=== PATIENT | male | born 1930 | race African-American/Black ===

== ENCOUNTER 2016-12-22 10:43 | Inpatient (IN) | payer MEDICARE, OTHER ==
[~2016-12-22] VITALS: Ht 170.2 cm; Wt 103.9 kg
[~2016-12-22 10:43] MED LIST: AMLO2.5T45 PO; ATEN50TA PO; ATOR-2 PO; BUDE6HFA INH; HYDR-3927 PO; MELO-58 PO; RANI150T7 PO
[2016-12-22] MEDS ORDERED: KETOROLAC 60MG/2ML VIAL IM ONE (11:15)
[2016-12-22 12:14] LABS: BASOPHILS % 0.7 % (0.0-2.0); EOSINOPHILS % 0.3 % (0.0-5.0); HEMATOCRIT. 30.6 % (42.0-52.0); HEMOGLOBIN. 10.6 g/dL (14.0-18.0); LYMPHOCYTES % 12.9 % (20.0-50.0); MEAN CORPUSCULAR HEMOGLOBIN 29.1 pg (28.0-32.0); MEAN CORPUSCULAR VOLUME 84.5 fL (80.0-94.0); MEAN PLATELET VOLUME 8.5 fl (7.4-10.4); MONOCYTES % 5.3 % (2.0-8.0); NEUTROPHILS % 80.8 % (40.0-76.0); PLATELET 161 x1000/uL (130-400); RED BLOOD CELL COUNT 3.62 mill/uL (4.7-6.1); RED CELL DISTRIBUTION WIDTH 14.4 % (11.6-14.6)
[2016-12-22 12:20] LABS: INR 1.1; PROTHROMBIN TIME 11.1 sec
[2016-12-22 12:23] LABS: CARBON DIOXIDE 27 mEq/L (21-32); CHLORIDE 88 mEq/L (98-107)
[2016-12-22 12:29] LABS: TROPONIN I 0.03 ng/mL (0.00-0.04)
[2016-12-22] MEDS ORDERED: SODIUM CHLORIDE 0.9% 1,000 ML IV ONE (13:45)
[2016-12-22 14:07] LABS: *AMPHETAMINES SCREEN URINE NEGATIVE (NEGATIVE); *BARBITURATES SCREEN URINE NEGATIVE (NEGATIVE); *BENZODIAZEPINES SCREEN URINE NEGATIVE (NEGATIVE); *COCAINE SCREEN URINE NEGATIVE (NEGATIVE); CANNABINOID URINE SCREEN PRESUMTIVE POSITIVE (NEGATIVE); METHADONE URINE SCREEN NEGATIVE (NEGATIVE); OPIATES URINE SCREEN NEGATIVE (NEGATIVE); PHENCYCLIDINE URINE SCREEN NEGATIVE (NEGATIVE)
[2016-12-22 16:00] VITALS: BP 160/77
[2016-12-22] MEDS ORDERED: IPRATROPIUM/ALBUTEROL 0.5-3(2.5)MG/3ML NEB INH PRN (17:00)
[2016-12-22] MEDS ORDERED: ONDANSETRON HCL 4MG/2ML VIAL IV PRN (17:00)
[2016-12-22] MEDS ORDERED: GUAIFENESIN 200MG/10ML SUGAR FREE UDC PO PRN (17:00)
[2016-12-22] MEDS ORDERED: LEVOFLOXACIN 500MG PREMIX 100 ML IV SCH (17:00)
[2016-12-22] MEDS ORDERED: CLONIDINE 0.1MG TABLET PO PRN (17:00)
[2016-12-22 17:13] VITALS: BP 160/77
[2016-12-22] MEDS: THIAMINE HCL 100MG TABLET PO SCH (18:21)
[2016-12-22] MEDS: MULTIVITAMINS,THER W-MINERALS TABLET PO SCH (18:22)
[2016-12-22] MEDS: ACETAMINOPHEN 325MG TABLET PO PRN (19:01)
[2016-12-22] MEDS: LORAZEPAM 2MG/ML CPJ IV PRN (20:10)
[2016-12-22 20:39] VITALS: BP 155/75
[2016-12-22] MEDS: LEVOFLOXACIN 500MG PREMIX 100 ML IV SCH (20:46)
[2016-12-22] MEDS: SODIUM CHLORIDE 0.9% 1,000 ML IV SCH (20:47)
[2016-12-22] MEDS: ENOXAPARIN 30MG/0.3ML SYR SUBCUT SCH (20:48)
[2016-12-22] MEDS: HYDROCODONE/ACETAMINOPHEN 10/325MG TABLET PO PRN (21:00)
[2016-12-23 00:52] VITALS: BP 129/66
[2016-12-23] MEDS: HYDROCODONE/ACETAMINOPHEN 10/325MG TABLET PO PRN ×3 (01:00→22:21)
[2016-12-23] MEDS: LORAZEPAM 2MG/ML CPJ IV PRN (03:24)
[2016-12-23 05:01] VITALS: BP 116/70
[2016-12-23 07:46] LABS: CARBON DIOXIDE 29 mEq/L (21-32); CHLORIDE 92 mEq/L (98-107)
[2016-12-23 07:48] LABS: BASOPHILS % 0.4 % (0.0-2.0); EOSINOPHILS % 2.2 % (0.0-5.0); HEMATOCRIT. 30.4 % (42.0-52.0); HEMOGLOBIN. 10.4 g/dL (14.0-18.0); LYMPHOCYTES % 30.6 % (20.0-50.0); MEAN CORPUSCULAR HEMOGLOBIN 29.2 pg (28.0-32.0); MEAN CORPUSCULAR VOLUME 85.3 fL (80.0-94.0); MONOCYTES % 7.2 % (2.0-8.0); NEUTROPHILS % 59.6 % (40.0-76.0); PLATELET 152 x1000/uL (130-400); RED BLOOD CELL COUNT 3.57 mill/uL (4.7-6.1); RED CELL DISTRIBUTION WIDTH 14.5 % (11.6-14.6)
[2016-12-23 08:00] VITALS: BP 144/77
[2016-12-23] MEDS: MULTIVITAMINS,THER W-MINERALS TABLET PO SCH (10:06)
[2016-12-23] MEDS: THIAMINE HCL 100MG TABLET PO SCH (10:06)
[2016-12-23] MEDS: ASPIRIN 81MG EC TABLET PO SCH (10:06)
[2016-12-23] MEDS: ENOXAPARIN 30MG/0.3ML SYR SUBCUT SCH ×2 (10:07→21:00)
[2016-12-23 12:00] VITALS: BP 125/77
[2016-12-23 16:00] VITALS: BP 128/78
[2016-12-23] MEDS: SODIUM CHLORIDE 0.9% 1,000 ML IV SCH (19:40)
[2016-12-23 20:00] VITALS: BP 143/74
[2016-12-23] MEDS: LEVOFLOXACIN 500MG PREMIX 100 ML IV SCH (21:00)
[2016-12-24] VITALS: BP 163/89
[2016-12-24 04:00] VITALS: BP 167/106
[2016-12-24] MEDS: HYDROCODONE/ACETAMINOPHEN 10/325MG TABLET PO PRN ×2 (06:54→23:19)
[2016-12-24 08:00] VITALS: BP 156/96
[2016-12-24] MEDS: SODIUM CHLORIDE 0.9% 1,000 ML IV SCH ×2 (09:00→21:35)
[2016-12-24] MEDS: ENOXAPARIN 30MG/0.3ML SYR SUBCUT SCH ×2 (09:00→20:06)
[2016-12-24] MEDS: ASPIRIN 81MG EC TABLET PO SCH (09:00)
[2016-12-24] MEDS: THIAMINE HCL 100MG TABLET PO SCH (09:42)
[2016-12-24] MEDS: MULTIVITAMINS,THER W-MINERALS TABLET PO SCH (09:42)
[2016-12-24 12:00] VITALS: BP 152/70
[2016-12-24] MEDS: LORAZEPAM 2MG/ML CPJ IV PRN ×2 (13:11→23:18)
[2016-12-24 16:00] VITALS: BP 146/76
[2016-12-24 20:00] VITALS: BP 138/86
[2016-12-24] MEDS: LEVOFLOXACIN 500MG PREMIX 100 ML IV SCH (20:06)
[2016-12-25] VITALS: BP 120/77
[2016-12-25 04:00] VITALS: BP 123/65
[2016-12-25 08:00] VITALS: BP 133/74
[2016-12-25] MEDS: MULTIVITAMINS,THER W-MINERALS TABLET PO SCH (08:28)
[2016-12-25] MEDS: THIAMINE HCL 100MG TABLET PO SCH (08:28)
[2016-12-25] MEDS: ASPIRIN 81MG EC TABLET PO SCH (08:28)
[2016-12-25] MEDS: ENOXAPARIN 30MG/0.3ML SYR SUBCUT SCH ×2 (09:00→21:37)
[2016-12-25] MEDS: LEVOFLOXACIN 250MG TABLET PO SCH (10:17)
[2016-12-25] MEDS: SODIUM CHLORIDE 0.9% 1,000 ML IV SCH (10:51)
[2016-12-25 12:00] VITALS: BP 156/79
[2016-12-25] MEDS: LORAZEPAM 2MG/ML CPJ IV PRN ×2 (15:58→21:35)
[2016-12-25 16:00] VITALS: BP 133/85
[2016-12-25] MEDS: HYDROCODONE/ACETAMINOPHEN 10/325MG TABLET PO PRN ×2 (16:13→21:34)
[2016-12-25 20:00] VITALS: BP 126/77
[2016-12-26] VITALS: BP 120/66
[2016-12-26 04:00] VITALS: BP 121/61
[2016-12-26] MEDS: HYDROCODONE/ACETAMINOPHEN 10/325MG TABLET PO PRN ×3 (04:54→15:44)
[2016-12-26] MEDS: LORAZEPAM 2MG/ML CPJ IV PRN ×3 (05:02→22:48)
[2016-12-26 08:00] VITALS: BP 133/85
[2016-12-26] MEDS: ASPIRIN 81MG EC TABLET PO SCH (09:33)
[2016-12-26] MEDS: THIAMINE HCL 100MG TABLET PO SCH (09:33)
[2016-12-26] MEDS: MULTIVITAMINS,THER W-MINERALS TABLET PO SCH (09:33)
[2016-12-26] MEDS: ENOXAPARIN 30MG/0.3ML SYR SUBCUT SCH ×2 (09:36→21:00)
[2016-12-26] MEDS: LEVOFLOXACIN 250MG TABLET PO SCH (11:00)
[2016-12-26 12:00] VITALS: BP 126/77
[2016-12-26 16:00] VITALS: BP 133/85
[2016-12-27] VITALS (7 sets, daily range): BP systolic 125–156; BP diastolic 67–106
[2016-12-27] MEDS: HYDROCODONE/ACETAMINOPHEN 10/325MG TABLET PO PRN ×2 (04:13→15:08)
[2016-12-27] MEDS: ENOXAPARIN 30MG/0.3ML SYR SUBCUT SCH ×2 (09:28→20:56)
[2016-12-27] MEDS: ASPIRIN 81MG EC TABLET PO SCH (09:28)
[2016-12-27] MEDS: MULTIVITAMINS,THER W-MINERALS TABLET PO SCH (09:28)
[2016-12-27] MEDS: THIAMINE HCL 100MG TABLET PO SCH (09:28)
[2016-12-27] MEDS: LEVOFLOXACIN 250MG TABLET PO SCH (11:25)
[2016-12-27] MEDS: ACETAMINOPHEN 325MG TABLET PO PRN (21:00)
[2016-12-28] VITALS: BP 104/79
[2016-12-28 04:00] VITALS: BP 124/80
[2016-12-28] MEDS: ACETAMINOPHEN 325MG TABLET PO PRN (04:33)
[2016-12-28] MEDS: SODIUM CHLORIDE 0.9% 1,000 ML IV SCH ×2 (06:20→19:40)
[2016-12-28 08:00] VITALS: BP 138/75
[2016-12-28] MEDS: MULTIVITAMINS,THER W-MINERALS TABLET PO SCH (08:26)
[2016-12-28] MEDS: THIAMINE HCL 100MG TABLET PO SCH (08:26)
[2016-12-28] MEDS: ASPIRIN 81MG EC TABLET PO SCH (08:26)
[2016-12-28] MEDS: ENOXAPARIN 30MG/0.3ML SYR SUBCUT SCH ×2 (08:27→20:06)
[2016-12-28] MEDS: LEVOFLOXACIN 250MG TABLET PO SCH (10:24)
[2016-12-28] MEDS: HYDROCODONE/ACETAMINOPHEN 10/325MG TABLET PO PRN ×2 (11:47→19:04)
[2016-12-28] MEDS: POLYVINYL ALCOHOL OPHTH DROPS 15ML BOTHEYE PRN ×2 (11:48→20:06)
[2016-12-28 12:00] VITALS: BP 128/68
[2016-12-28 16:00] VITALS: BP 137/81
[2016-12-28 20:00] VITALS: BP 147/75
[2016-12-29] VITALS: BP 125/65
[2016-12-29] MEDS: HYDROCODONE/ACETAMINOPHEN 10/325MG TABLET PO PRN ×2 (01:06→16:48)
[2016-12-29 04:00] VITALS: BP 149/79
[2016-12-29 08:00] VITALS: BP 156/96
[2016-12-29] MEDS: ASPIRIN 81MG EC TABLET PO SCH (08:43)
[2016-12-29] MEDS: THIAMINE HCL 100MG TABLET PO SCH (08:43)
[2016-12-29] MEDS: MULTIVITAMINS,THER W-MINERALS TABLET PO SCH (08:43)
[2016-12-29] MEDS: SODIUM CHLORIDE 0.9% 1,000 ML IV SCH ×2 (08:43→22:20)
[2016-12-29] MEDS: ENOXAPARIN 30MG/0.3ML SYR SUBCUT SCH ×2 (08:44→20:21)
[2016-12-29] MEDS: LEVOFLOXACIN 250MG TABLET PO SCH (10:17)
[2016-12-29 12:00] VITALS: BP 141/81
[2016-12-29 16:00] VITALS: BP 176/101
[2016-12-29 20:00] VITALS: BP 149/92
[2016-12-29] MEDS: ACETAMINOPHEN 325MG TABLET PO PRN (20:34)
[2016-12-29] MEDS: POLYVINYL ALCOHOL OPHTH DROPS 15ML BOTHEYE PRN (20:44)
[2016-12-30 04:00] VITALS: BP 129/69
[2016-12-30 08:00] VITALS: BP 128/86
[2016-12-30] MEDS: THIAMINE HCL 100MG TABLET PO SCH (08:54)
[2016-12-30] MEDS: ASPIRIN 81MG EC TABLET PO SCH (08:54)
[2016-12-30] MEDS: HYDROCODONE/ACETAMINOPHEN 10/325MG TABLET PO PRN ×2 (08:55→20:17)
[2016-12-30] MEDS: ENOXAPARIN 30MG/0.3ML SYR SUBCUT SCH ×2 (08:56→20:22)
[2016-12-30] MEDS: MULTIVITAMINS,THER W-MINERALS TABLET PO SCH (08:56)
[2016-12-30 12:00] VITALS: BP 156/90
[2016-12-30] MEDS: ACETAMINOPHEN 325MG TABLET PO PRN (14:44)
[2016-12-30 16:00] VITALS: BP 121/66
[2016-12-30 20:00] VITALS: BP 137/82
[2016-12-31 08:00] VITALS: BP 152/106
[2016-12-31] MEDS: ASPIRIN 81MG EC TABLET PO SCH (08:21)
[2016-12-31] MEDS: ENOXAPARIN 30MG/0.3ML SYR SUBCUT SCH (08:21)
[2016-12-31] MEDS: MULTIVITAMINS,THER W-MINERALS TABLET PO SCH (08:21)
[2016-12-31] MEDS: THIAMINE HCL 100MG TABLET PO SCH (08:21)
[2016-12-31] MEDS ORDERED: HALOPERIDOL LACTATE 5MG/ML VIAL IM SCH (11:00)
[2016-12-31] MEDS ORDERED: LORAZEPAM 2MG/ML CPJ IV SCH (11:00)
[2016-12-31 11:30] VITALS: BP 120/80
[2016-12-31 11:51] VITALS: BP 120/80
== END 2016-12-31 12:20 | DRG 871 ==
LOC: ER 10:43 → 5WST 13:43 → ENRESERV 15:38 → CANBEDREQ 16:42 → 5WST 17:48
PROVIDERS: ADMIT Hospitalist; ATTEND Hospitalist
PROC: 02HV33Z Insertion of Infusion Device into Superior Vena Cava, Percutaneous Approach (ICD-10-PCS; principal; 2016-12-24)
PROC: B518ZZA Fluoroscopy of Superior Vena Cava, Guidance (ICD-10-PCS; 2016-12-24)
PROC: B548ZZA Ultrasonography of Superior Vena Cava, Guidance (ICD-10-PCS; 2016-12-24)
DX: A41.9 Sepsis, unspecified organism (principal); J18.9 Pneumonia, unspecified organism; G93.40 Encephalopathy, unspecified; E87.1 Hypo-osmolality and hyponatremia; F05 Delirium due to known physiological condition; I10 Essential (primary) hypertension; F03.90 Unspecified dementia, unspecified severity, without behavioral disturbance, psychotic disturbance, mood disturbance, and anxiety; R91.1 Solitary pulmonary nodule; M19.90 Unspecified osteoarthritis, unspecified site; F12.90 Cannabis use, unspecified, uncomplicated; Z79.899 Other long term (current) drug therapy
CPT/HCPCS: 36415; 36569; 70450; 71010; 76937; 77001; 80048; 80053; 80305; 83880; 84484; 85025; 85610; 93005; 93970; 96372; 97162; 97530; 99285; C1725; J1630; J1650; J1885; J1956; J2060; J7030

== ENCOUNTER 2019-09-02 20:25 | Inpatient (IN) | payer MEDICARE, OTHER ==
[~2019-09-02] VITALS: Ht 167.6 cm; Wt 83.9 kg
[2019-09-02] MEDS ORDERED: ALBUTEROL (0.083%) 2.5MG/3ML NEB HHN STA (20:54)
[2019-09-02] MEDS ORDERED: IPRATROPIUM BROMIDE (0.02%) 0.5MG/2.5ML NEB HHN STA (20:54)
[2019-09-02] MEDS ORDERED: METHYLPREDNISOLONE SOD SUCC 125 MG/2 ML VIAL IV STA (20:54)
[2019-09-02 21:44] LABS: BG BASE EXCESS 1.9 mmol/L (-2.0-2.0); BG CARBOXYHEMOGLOBIN 0.7 % (0.5-1.5); BG FRACTION INSPIRED OXYGEN 70; BG HCO3 ACT 28.2 mmol/L (22.0-26.0); BG METHEMOGLOBIN 0.1 % (0.0-1.5); BG OXYHEMOGLOBIN 98.2 % (94.0-97.0); BG PCO2 51.1 mmHg (35.0-45.0); BG PO2 143.8 mmHg (75.0-100.0); BG SAMPLE SITE RIGHT RADIAL; BG TOTAL HEMOGLOBIN 13.8 g/dL (12.0-18.0); BG VENT MODE MASK - BIPAP; BG VENT RATE 16 set
[2019-09-02 21:55] LABS: BASOPHILS % 0.4 % (0.0-2.0); EOSINOPHILS % 2.8 % (0.0-5.0); HEMATOCRIT. 41.1 % (42.0-52.0); HEMOGLOBIN. 13.9 g/dL (14.0-18.0); MEAN CORPUSCULAR VOLUME 88.6 fL (80.0-94.0); MEAN PLATELET VOLUME 8.4 fl (7.4-10.4); MONOCYTES % 6.9 % (2.0-8.0); NEUTROPHILS % 63.9 % (40.0-76.0); PLATELET 183 x1000/uL (130-400); RED BLOOD CELL COUNT 4.64 mill/uL (4.7-6.1); RED CELL DISTRIBUTION WIDTH 13.1 % (11.6-14.6)
[2019-09-02 22:02] LABS: CHLORIDE 97 mEq/L (98-107)
[2019-09-02] MEDS ORDERED: CEFTRIAXONE 1 G PREMIX 50 ML IV ONE (22:30)
[2019-09-02] MEDS ORDERED: FUROSEMIDE 40MG/4ML VIAL IVP ONE (22:30)
[2019-09-02] MEDS ORDERED: AZITHROMYCIN 500 MG in DEXT 5% WATER 250 ML IV STA (22:30)
[2019-09-03] VITALS (13 sets, daily range): BP systolic 105–134; BP diastolic 54–82
[2019-09-03] MEDS ORDERED: MAGNESIUM/ALUMINUM HYDROXIDE/SIMETHICONE 30ML UDC PO PRN (02:15)
[2019-09-03] MEDS ORDERED: CLONIDINE 0.1MG TABLET PO PRN (02:15)
[2019-09-03] MEDS ORDERED: CEFTRIAXONE 1 G PREMIX 50 ML IV SCH (02:15)
[2019-09-03] MEDS ORDERED: DOCUSATE SODIUM 100MG CAPSULE PO PRN (02:15)
[2019-09-03] MEDS ORDERED: ONDANSETRON HCL 4MG/2ML INJ IV PRN (02:15)
[2019-09-03] MEDS ORDERED: AZITHROMYCIN 500 MG in DEXT 5% WATER 250 ML IV SCH (02:15)
[2019-09-03] MEDS: METHYLPREDNISOLONE SOD SUCC 125 MG/2 ML VIAL IV SCH ×4 (06:00→23:10)
[2019-09-03] MEDS: FUROSEMIDE 40MG/4ML VIAL IV SCH (09:03)
[2019-09-03] MEDS: AMLODIPINE 10MG TABLET PO SCH (09:04)
[2019-09-03] MEDS: IPRATROPIUM/ALBUTEROL 0.5-3(2.5)MG/3ML NEB NEB SCH ×4 (10:00→20:18)
[2019-09-03] MEDS: IPRATROPIUM/ALBUTEROL 0.5-3(2.5)MG/3ML NEB NEB PRN (12:33)
[2019-09-03] MEDS: ENOXAPARIN 40MG/0.4ML SYR SUBCUT SCH (12:58)
[2019-09-03] MEDS: CEFTRIAXONE 1 G PREMIX 50 ML IV SCH (21:32)
[2019-09-03] MEDS: AZITHROMYCIN 500 MG in DEXT 5% WATER 250 ML IV SCH (22:15)
[2019-09-03] MEDS: ACETAMINOPHEN 325MG TABLET PO PRN (22:23)
[2019-09-04] VITALS (12 sets, daily range): BP systolic 94–124; BP diastolic 50–70
[2019-09-04] MEDS: IPRATROPIUM/ALBUTEROL 0.5-3(2.5)MG/3ML NEB NEB SCH ×6 (00:26→20:00)
[2019-09-04] MEDS: METHYLPREDNISOLONE SOD SUCC 125 MG/2 ML VIAL IV SCH ×4 (05:14→23:50)
[2019-09-04 06:46] LABS: BASOPHILS % 0.2 % (0.0-2.0); HEMATOCRIT. 37.6 % (42.0-52.0); HEMOGLOBIN. 12.7 g/dL (14.0-18.0); LYMPHOCYTES % 13.5 % (20.0-50.0); MEAN CORPUSCULAR HEMOGLOBIN 29.7 pg (28.0-32.0); MEAN CORPUSCULAR VOLUME 87.8 fL (80.0-94.0); MEAN PLATELET VOLUME 8.7 fl (7.4-10.4); MONOCYTES % 1.3 % (2.0-8.0); PLATELET 158 x1000/uL (130-400); RED BLOOD CELL COUNT 4.28 mill/uL (4.7-6.1)
[2019-09-04 06:48] LABS: CHLORIDE 92 mEq/L (98-107)
[2019-09-04 08:11] LABS: BG BASE EXCESS 6.1 mmol/L (-2.0-2.0); BG CARBOXYHEMOGLOBIN 0.5 % (0.5-1.5); BG DEOXYHEMOGLOBIN 11.5 % (0.0-5.0); BG HCO3 ACT 31.7 mmol/L (22.0-26.0); BG OXYGEN SATURATION 88.4 % (92.0-98.5); BG PCO2 49.9 mmHg (35.0-45.0); BG PH 7.421 (7.350-7.450); BG PO2 51.6 mmHg (75.0-100.0); BG SAMPLE SITE RIGHT RADIAL; BG TOTAL HEMOGLOBIN 13.1 g/dL (12.0-18.0); BG VENT MODE ROOM AIR
[2019-09-04] MEDS: FUROSEMIDE 40MG/4ML VIAL IV SCH (09:44)
[2019-09-04] MEDS: ENOXAPARIN 40MG/0.4ML SYR SUBCUT SCH (09:45)
[2019-09-04] MEDS: AMLODIPINE 10MG TABLET PO SCH (09:46)
[2019-09-04] MEDS: ZOLPIDEM TARTRATE 5MG TABLET PO PRN (21:47)
[2019-09-04] MEDS: CEFTRIAXONE 1 G PREMIX 50 ML IV SCH (22:31)
[2019-09-04] MEDS: AZITHROMYCIN 500 MG in DEXT 5% WATER 250 ML IV SCH (23:49)
[2019-09-05] VITALS (13 sets, daily range): BP systolic 104–129; BP diastolic 37–74
[2019-09-05] MEDS: IPRATROPIUM/ALBUTEROL 0.5-3(2.5)MG/3ML NEB NEB SCH ×6 (02:01→21:06)
[2019-09-05] MEDS: ACETAMINOPHEN 325MG TABLET PO PRN (02:38)
[2019-09-05] MEDS: METHYLPREDNISOLONE SOD SUCC 125 MG/2 ML VIAL IV SCH (05:32)
[2019-09-05] MEDS: AMLODIPINE 10MG TABLET PO SCH (08:39)
[2019-09-05] MEDS: ENOXAPARIN 40MG/0.4ML SYR SUBCUT SCH (08:39)
[2019-09-05] MEDS: FUROSEMIDE 40MG TABLET PO SCH (10:31)
[2019-09-05] MEDS: PREDNISONE 20MG TABLET PO SCH (13:32)
[2019-09-05] MEDS: ZOLPIDEM TARTRATE 5MG TABLET PO PRN (20:29)
[2019-09-05] MEDS ORDERED: HYDROCODONE/ACETAMINOPHEN 10/325MG TABLET PO PRN (20:30)
[2019-09-05] MEDS ORDERED: AZITHROMYCIN 500 MG TABLET PO SCH (21:00)
[2019-09-05] MEDS: CEFTRIAXONE 1 G PREMIX 50 ML IV SCH (22:00)
[2019-09-05] MEDS: BICALUTAMIDE 50 MG TABLET PO SCH (22:38)
[2019-09-05] MEDS: LORAZEPAM 1MG TABLET PO PRN (22:38)
[2019-09-06] VITALS (11 sets, daily range): BP systolic 104–131; BP diastolic 58–78
[2019-09-06] MEDS: IPRATROPIUM/ALBUTEROL 0.5-3(2.5)MG/3ML NEB NEB SCH ×6 (01:03→20:45)
[2019-09-06] MEDS: HYDROCODONE/ACETAMINOPHEN 10/325MG TABLET PO PRN (06:26)
[2019-09-06 07:35] LABS: BG BASE EXCESS 3.6 mmol/L (-2.0-2.0); BG CARBOXYHEMOGLOBIN 0.5 % (0.5-1.5); BG DEOXYHEMOGLOBIN 11.3 % (0.0-5.0); BG FRACTION INSPIRED OXYGEN 21; BG HCO3 ACT 29.4 mmol/L (22.0-26.0); BG METHEMOGLOBIN 0.1 % (0.0-1.5); BG OXYGEN SATURATION 88.6 % (92.0-98.5); BG OXYHEMOGLOBIN 88.1 % (94.0-97.0); BG PCO2 49.1 mmHg (35.0-45.0); BG PH 7.395 (7.350-7.450); BG PO2 54.5 mmHg (75.0-100.0); BG SAMPLE SITE RIGHT RADIAL; BG TOTAL HEMOGLOBIN 13.3 g/dL (12.0-18.0); BG VENT MODE ROOM AIR
[2019-09-06] MEDS: AMLODIPINE 10MG TABLET PO SCH (09:22)
[2019-09-06] MEDS: PREDNISONE 20MG TABLET PO SCH (09:22)
[2019-09-06] MEDS: FUROSEMIDE 40MG TABLET PO SCH (09:23)
[2019-09-06] MEDS: ENOXAPARIN 40MG/0.4ML SYR SUBCUT SCH (09:23)
[2019-09-06 15:40] LABS: BG BASE EXCESS 3.5 mmol/L (-2.0-2.0); BG CARBOXYHEMOGLOBIN 0.7 % (0.5-1.5); BG DEOXYHEMOGLOBIN 10.7 % (0.0-5.0); BG FRACTION INSPIRED OXYGEN 21; BG HCO3 ACT 29.6 mmol/L (22.0-26.0); BG METHEMOGLOBIN 0.1 % (0.0-1.5); BG OXYGEN SATURATION 89.2 % (92.0-98.5); BG OXYHEMOGLOBIN 88.5 % (94.0-97.0); BG PCO2 50.8 mmHg (35.0-45.0); BG PH 7.383 (7.350-7.450); BG PO2 55.5 mmHg (75.0-100.0); BG SAMPLE SITE RIGHT RADIAL; BG TOTAL HEMOGLOBIN 14.1 g/dL (12.0-18.0); BG VENT MODE ROOM AIR
[2019-09-06] MEDS: PIPERACILLIN/TAZOBACTAM 3.375 G in DEXT 5% WATER 100 ML IV SCH ×2 (17:11→21:22)
[2019-09-06] MEDS: BICALUTAMIDE 50 MG TABLET PO SCH (18:10)
[2019-09-06] MEDS: MORPHINE SULFATE 2 MG/ML CPJ (NOT FOR IM USE) IV PRN (19:30)
[2019-09-06] MEDS: ZOLPIDEM TARTRATE 5MG TABLET PO PRN (21:17)
[2019-09-06] MEDS ORDERED: PIPERACILLIN/TAZOBACTAM 3.375 G/VIAL IV SCH (22:00)
[2019-09-07] VITALS (11 sets, daily range): BP systolic 103–136; BP diastolic 54–81
[2019-09-07] MEDS: ACETYLCYSTEINE 100MG/ML 10% VIAL 4ML INH SCH ×3 (00:39→16:05)
[2019-09-07] MEDS: IPRATROPIUM/ALBUTEROL 0.5-3(2.5)MG/3ML NEB NEB SCH ×6 (00:39→21:09)
[2019-09-07] MEDS: PIPERACILLIN/TAZOBACTAM 3.375 G in DEXT 5% WATER 100 ML IV SCH ×3 (05:59→21:03)
[2019-09-07] MEDS: FUROSEMIDE 40MG TABLET PO SCH (08:50)
[2019-09-07] MEDS: ENOXAPARIN 40MG/0.4ML SYR SUBCUT SCH (08:50)
[2019-09-07] MEDS: PREDNISONE 20MG TABLET PO SCH (08:50)
[2019-09-07] MEDS: AMLODIPINE 10MG TABLET PO SCH (08:50)
[2019-09-07] MEDS: MORPHINE SULFATE 2 MG/ML CPJ (NOT FOR IM USE) IV PRN (08:51)
[2019-09-07 12:58] LABS: BASOPHILS % 0.1 % (0.0-2.0); EOSINOPHILS % 0.1 % (0.0-5.0); HEMATOCRIT. 39.1 % (42.0-52.0); HEMOGLOBIN. 13.2 g/dL (14.0-18.0); LYMPHOCYTES % 11.7 % (20.0-50.0); MEAN CORPUSCULAR HEMOGLOBIN 29.7 pg (28.0-32.0); MEAN CORPUSCULAR VOLUME 88.4 fL (80.0-94.0); MEAN PLATELET VOLUME 9.1 fl (7.4-10.4); MONOCYTES % 9.8 % (2.0-8.0); NEUTROPHILS % 78.3 % (40.0-76.0); PLATELET 153 x1000/uL (130-400); RED BLOOD CELL COUNT 4.43 mill/uL (4.7-6.1)
[2019-09-07] MEDS: LORAZEPAM 1MG TABLET PO PRN (13:31)
[2019-09-07] MEDS: IPRATROPIUM/ALBUTEROL 0.5-3(2.5)MG/3ML NEB NEB PRN (13:39)
[2019-09-07 13:41] LABS: CHLORIDE 93 mEq/L (98-107)
[2019-09-07] MEDS: HYDROCODONE/ACETAMINOPHEN 10/325MG TABLET PO PRN ×2 (15:22→23:36)
[2019-09-07] MEDS: BICALUTAMIDE 50 MG TABLET PO SCH (16:33)
[2019-09-07] MEDS: ZOLPIDEM TARTRATE 5MG TABLET PO PRN (20:45)
[2019-09-08] VITALS (9 sets, daily range): BP systolic 108–123; BP diastolic 55–71
[2019-09-08] MEDS: ACETYLCYSTEINE 100MG/ML 10% VIAL 4ML INH SCH ×3 (00:29→17:08)
[2019-09-08] MEDS: IPRATROPIUM/ALBUTEROL 0.5-3(2.5)MG/3ML NEB NEB SCH ×6 (00:29→20:35)
[2019-09-08] MEDS: PIPERACILLIN/TAZOBACTAM 3.375 G in DEXT 5% WATER 100 ML IV SCH ×3 (05:53→21:05)
[2019-09-08] MEDS: AMLODIPINE 10MG TABLET PO SCH (08:50)
[2019-09-08] MEDS: FUROSEMIDE 40MG TABLET PO SCH (08:51)
[2019-09-08] MEDS: PREDNISONE 20MG TABLET PO SCH (08:51)
[2019-09-08] MEDS: ENOXAPARIN 40MG/0.4ML SYR SUBCUT SCH (08:52)
[2019-09-08] MEDS: HYDROCODONE/ACETAMINOPHEN 10/325MG TABLET PO PRN (13:22)
[2019-09-08] MEDS: BICALUTAMIDE 50 MG TABLET PO SCH (18:36)
[2019-09-08] MEDS: MORPHINE SULFATE 2 MG/ML CPJ (NOT FOR IM USE) IV PRN (20:15)
[2019-09-09] VITALS: BP 135/75
[2019-09-09] MEDS: ACETYLCYSTEINE 100MG/ML 10% VIAL 4ML INH SCH ×3 (00:48→16:47)
[2019-09-09] MEDS: IPRATROPIUM/ALBUTEROL 0.5-3(2.5)MG/3ML NEB NEB SCH ×6 (00:49→20:57)
[2019-09-09 04:00] VITALS: BP 122/62
[2019-09-09] MEDS: PIPERACILLIN/TAZOBACTAM 3.375 G in DEXT 5% WATER 100 ML IV SCH ×3 (05:00→21:18)
[2019-09-09] MEDS: MORPHINE SULFATE 2 MG/ML CPJ (NOT FOR IM USE) IV PRN ×3 (06:50→17:03)
[2019-09-09 08:00] VITALS: BP 129/60
[2019-09-09] MEDS: FUROSEMIDE 40MG TABLET PO SCH (08:54)
[2019-09-09] MEDS: PREDNISONE 20MG TABLET PO SCH (08:54)
[2019-09-09] MEDS: AMLODIPINE 10MG TABLET PO SCH (08:55)
[2019-09-09] MEDS: ENOXAPARIN 40MG/0.4ML SYR SUBCUT SCH (08:55)
[2019-09-09 12:00] VITALS: BP 103/55
[2019-09-09] MEDS: HYDROCODONE/ACETAMINOPHEN 10/325MG TABLET PO PRN ×2 (14:28→21:18)
[2019-09-09 16:00] VITALS: BP 120/67
[2019-09-09] MEDS: BICALUTAMIDE 50 MG TABLET PO SCH (17:02)
[2019-09-09 20:00] VITALS: BP 117/61
[2019-09-10] VITALS: BP 114/61
[2019-09-10] MEDS: MORPHINE SULFATE 2 MG/ML CPJ (NOT FOR IM USE) IV PRN ×3 (00:32→16:53)
[2019-09-10] MEDS: ACETYLCYSTEINE 100MG/ML 10% VIAL 4ML INH SCH ×3 (00:47→16:38)
[2019-09-10] MEDS: IPRATROPIUM/ALBUTEROL 0.5-3(2.5)MG/3ML NEB NEB SCH ×6 (00:48→21:07)
[2019-09-10 04:00] VITALS: BP 114/58
[2019-09-10] MEDS: HYDROCODONE/ACETAMINOPHEN 10/325MG TABLET PO PRN ×2 (04:50→13:33)
[2019-09-10] MEDS: PIPERACILLIN/TAZOBACTAM 3.375 G in DEXT 5% WATER 100 ML IV SCH ×3 (05:19→21:00)
[2019-09-10 08:00] VITALS: BP 124/60
[2019-09-10] MEDS: FUROSEMIDE 40MG TABLET PO SCH (08:17)
[2019-09-10] MEDS: ENOXAPARIN 40MG/0.4ML SYR SUBCUT SCH (08:18)
[2019-09-10] MEDS: PREDNISONE 20MG TABLET PO SCH (08:18)
[2019-09-10] MEDS: AMLODIPINE 10MG TABLET PO SCH (08:18)
[2019-09-10 12:00] VITALS: BP 116/79
[2019-09-10 16:00] VITALS: BP 105/60
[2019-09-10] MEDS: BICALUTAMIDE 50 MG TABLET PO SCH (16:52)
[2019-09-10 20:00] VITALS: BP 113/57
[2019-09-11] VITALS: BP 108/56
[2019-09-11] MEDS: IPRATROPIUM/ALBUTEROL 0.5-3(2.5)MG/3ML NEB NEB SCH ×6 (00:32→21:49)
[2019-09-11] MEDS: ACETYLCYSTEINE 100MG/ML 10% VIAL 4ML INH SCH ×4 (00:32→17:08)
[2019-09-11 04:00] VITALS: BP 106/52
[2019-09-11] MEDS: PIPERACILLIN/TAZOBACTAM 3.375 G in DEXT 5% WATER 100 ML IV SCH ×3 (05:44→21:16)
[2019-09-11 08:00] VITALS: BP 118/58
[2019-09-11] MEDS: AMLODIPINE 10MG TABLET PO SCH (09:03)
[2019-09-11] MEDS: ENOXAPARIN 40MG/0.4ML SYR SUBCUT SCH (09:03)
[2019-09-11] MEDS: PREDNISONE 20MG TABLET PO SCH (09:03)
[2019-09-11] MEDS: FUROSEMIDE 40MG TABLET PO SCH (09:03)
[2019-09-11 12:00] VITALS: BP 111/54
[2019-09-11] MEDS: HYDROCODONE/ACETAMINOPHEN 10/325MG TABLET PO PRN (13:16)
[2019-09-11 16:00] VITALS: BP 123/64
[2019-09-11] MEDS: BICALUTAMIDE 50 MG TABLET PO SCH (17:03)
[2019-09-11 20:00] VITALS: BP 123/63
[2019-09-12] VITALS: BP 118/59
[2019-09-12] MEDS: HYDROCODONE/ACETAMINOPHEN 10/325MG TABLET PO PRN (00:57)
[2019-09-12] MEDS: IPRATROPIUM/ALBUTEROL 0.5-3(2.5)MG/3ML NEB NEB SCH ×7 (01:05→21:17)
[2019-09-12 04:00] VITALS: BP 106/73
[2019-09-12] MEDS: PIPERACILLIN/TAZOBACTAM 3.375 G in DEXT 5% WATER 100 ML IV SCH ×3 (05:01→23:06)
[2019-09-12 08:00] VITALS: BP 114/69
[2019-09-12] MEDS: PREDNISONE 20MG TABLET PO SCH (09:54)
[2019-09-12] MEDS: FUROSEMIDE 40MG TABLET PO SCH (09:54)
[2019-09-12] MEDS: ENOXAPARIN 40MG/0.4ML SYR SUBCUT SCH (09:55)
[2019-09-12] MEDS: AMLODIPINE 10MG TABLET PO SCH (09:55)
[2019-09-12 12:00] VITALS: BP 132/79
[2019-09-12] MEDS: MORPHINE SULFATE 2 MG/ML CPJ (NOT FOR IM USE) IV PRN (13:33)
[2019-09-12 16:00] VITALS: BP 110/64
[2019-09-12] MEDS: BICALUTAMIDE 50 MG TABLET PO SCH (17:19)
[2019-09-12 20:00] VITALS: BP 116/61
[2019-09-13] VITALS: BP 108/60
[2019-09-13] MEDS: IPRATROPIUM/ALBUTEROL 0.5-3(2.5)MG/3ML NEB NEB SCH ×7 (00:22→21:07)
[2019-09-13 04:00] VITALS: BP 109/56
[2019-09-13] MEDS: PIPERACILLIN/TAZOBACTAM 3.375 G in DEXT 5% WATER 100 ML IV SCH ×3 (06:32→23:07)
[2019-09-13 08:00] VITALS: BP 140/59
[2019-09-13] MEDS: FUROSEMIDE 40MG TABLET PO SCH (09:06)
[2019-09-13] MEDS: PREDNISONE 20MG TABLET PO SCH (09:06)
[2019-09-13] MEDS: AMLODIPINE 10MG TABLET PO SCH (09:07)
[2019-09-13] MEDS: ENOXAPARIN 40MG/0.4ML SYR SUBCUT SCH (09:08)
[2019-09-13] MEDS: MORPHINE SULFATE 2 MG/ML CPJ (NOT FOR IM USE) IV PRN ×2 (09:10→13:50)
[2019-09-13 12:00] VITALS: BP 139/91
[2019-09-13 16:00] VITALS: BP 163/88
[2019-09-13] MEDS: HYDROCODONE/ACETAMINOPHEN 10/325MG TABLET PO PRN (16:21)
[2019-09-13] MEDS: BICALUTAMIDE 50 MG TABLET PO SCH (16:23)
[2019-09-13 20:00] VITALS: BP 139/63
[2019-09-14] VITALS: BP 106/52
[2019-09-14] MEDS: MORPHINE SULFATE 2 MG/ML CPJ (NOT FOR IM USE) IV PRN (00:03)
[2019-09-14] MEDS: IPRATROPIUM/ALBUTEROL 0.5-3(2.5)MG/3ML NEB NEB SCH ×6 (01:19→19:15)
[2019-09-14 04:00] VITALS: BP 101/56
[2019-09-14 08:00] VITALS: BP 118/61
[2019-09-14] MEDS: ENOXAPARIN 40MG/0.4ML SYR SUBCUT SCH (10:21)
[2019-09-14] MEDS: PREDNISONE 20MG TABLET PO SCH (10:22)
[2019-09-14] MEDS: AMLODIPINE 10MG TABLET PO SCH (10:22)
[2019-09-14] MEDS: FUROSEMIDE 40MG TABLET PO SCH (10:22)
[2019-09-14 12:00] VITALS: BP 122/61
[2019-09-14 16:00] VITALS: BP 123/55
[2019-09-14] MEDS: BICALUTAMIDE 50 MG TABLET PO SCH (18:24)
[2019-09-14 20:00] VITALS: BP 136/71
[2019-09-15] VITALS: BP 105/53
[2019-09-15] MEDS: IPRATROPIUM/ALBUTEROL 0.5-3(2.5)MG/3ML NEB NEB SCH ×6 (02:40→20:54)
[2019-09-15 04:00] VITALS: BP 149/67
[2019-09-15 08:00] VITALS: BP 118/67
[2019-09-15] MEDS: FUROSEMIDE 40MG TABLET PO SCH (08:57)
[2019-09-15] MEDS: ENOXAPARIN 40MG/0.4ML SYR SUBCUT SCH (08:57)
[2019-09-15] MEDS: AMLODIPINE 10MG TABLET PO SCH (08:57)
[2019-09-15] MEDS: PREDNISONE 20MG TABLET PO SCH (08:57)
[2019-09-15 12:00] VITALS: BP 110/62
[2019-09-15] MEDS: MORPHINE SULFATE 2 MG/ML CPJ (NOT FOR IM USE) IV PRN ×2 (12:35→21:33)
[2019-09-15 16:00] VITALS: BP 121/61
[2019-09-15] MEDS: BICALUTAMIDE 50 MG TABLET PO SCH (18:25)
[2019-09-15 20:00] VITALS: BP 142/65
[2019-09-16] VITALS: BP 153/110
[2019-09-16] MEDS: IPRATROPIUM/ALBUTEROL 0.5-3(2.5)MG/3ML NEB NEB SCH ×6 (00:24→20:31)
[2019-09-16 04:00] VITALS: BP 137/86
[2019-09-16] MEDS: MORPHINE SULFATE 2 MG/ML CPJ (NOT FOR IM USE) IV PRN ×2 (06:42→10:53)
[2019-09-16 08:00] VITALS: BP 124/73
[2019-09-16] MEDS: ENOXAPARIN 40MG/0.4ML SYR SUBCUT SCH (09:00)
[2019-09-16] MEDS: AMLODIPINE 10MG TABLET PO SCH (09:41)
[2019-09-16] MEDS: PREDNISONE 20MG TABLET PO SCH (09:41)
[2019-09-16] MEDS: FUROSEMIDE 40MG TABLET PO SCH (09:41)
[2019-09-16] MEDS: IPRATROPIUM/ALBUTEROL 0.5-3(2.5)MG/3ML NEB NEB PRN (10:00)
[2019-09-16 12:02] VITALS: BP 128/68
[2019-09-16 16:08] VITALS: BP 127/72
[2019-09-16] MEDS: BICALUTAMIDE 50 MG TABLET PO SCH (16:25)
[2019-09-16 20:00] VITALS: BP 128/71
[2019-09-17] VITALS: BP 121/64
[2019-09-17] MEDS: IPRATROPIUM/ALBUTEROL 0.5-3(2.5)MG/3ML NEB NEB SCH ×5 (00:34→22:19)
[2019-09-17] MEDS: ACETAMINOPHEN 325MG TABLET PO PRN ×2 (00:46→18:43)
[2019-09-17 04:00] VITALS: BP 123/65
[2019-09-17 06:14] LABS: BASOPHILS % 0.1 % (0.0-2.0); EOSINOPHILS % 0.1 % (0.0-5.0); HEMATOCRIT. 39.3 % (42.0-52.0); HEMOGLOBIN. 13.2 g/dL (14.0-18.0); LYMPHOCYTES % 11.5 % (20.0-50.0); MEAN CORPUSCULAR HEMOGLOBIN 29.4 pg (28.0-32.0); MEAN CORPUSCULAR VOLUME 87.4 fL (80.0-94.0); MEAN PLATELET VOLUME 8.4 fl (7.4-10.4); MONOCYTES % 3.2 % (2.0-8.0); NEUTROPHILS % 85.1 % (40.0-76.0); PLATELET 172 x1000/uL (130-400); RED CELL DISTRIBUTION WIDTH 13.3 % (11.6-14.6)
[2019-09-17 08:00] VITALS: BP 119/67
[2019-09-17] MEDS: AMLODIPINE 10MG TABLET PO SCH (09:21)
[2019-09-17] MEDS: FUROSEMIDE 40MG TABLET PO SCH (09:21)
[2019-09-17] MEDS: PREDNISONE 20MG TABLET PO SCH (09:21)
[2019-09-17] MEDS: ENOXAPARIN 40MG/0.4ML SYR SUBCUT SCH (09:21)
[2019-09-17 12:00] VITALS: BP 116/61
[2019-09-17 16:00] VITALS: BP 119/61
[2019-09-17] MEDS: BICALUTAMIDE 50 MG TABLET PO SCH (16:37)
[2019-09-17 20:00] VITALS: BP 116/66
[2019-09-18] VITALS: BP 114/57
[2019-09-18] MEDS: IPRATROPIUM/ALBUTEROL 0.5-3(2.5)MG/3ML NEB NEB SCH ×6 (01:35→21:09)
[2019-09-18 04:00] VITALS: BP 120/60
[2019-09-18 08:00] VITALS: BP 103/59
[2019-09-18] MEDS: AMLODIPINE 10MG TABLET PO SCH (09:00)
[2019-09-18] MEDS: FUROSEMIDE 40MG TABLET PO SCH (09:13)
[2019-09-18] MEDS: PREDNISONE 20MG TABLET PO SCH (09:13)
[2019-09-18] MEDS: ENOXAPARIN 40MG/0.4ML SYR SUBCUT SCH (09:14)
[2019-09-18 12:00] VITALS: BP 117/65
[2019-09-18] MEDS: ACETAMINOPHEN 325MG TABLET PO PRN (12:28)
[2019-09-18 16:00] VITALS: BP 106/57
[2019-09-18] MEDS: BICALUTAMIDE 50 MG TABLET PO SCH (17:48)
[2019-09-18 20:00] VITALS: BP 150/93
[2019-09-19] VITALS: BP 149/72
[2019-09-19] MEDS: IPRATROPIUM/ALBUTEROL 0.5-3(2.5)MG/3ML NEB NEB SCH ×6 (00:34→21:53)
[2019-09-19 04:00] VITALS: BP 147/68
[2019-09-19] MEDS: ACETAMINOPHEN 325MG TABLET PO PRN ×2 (04:50→22:41)
[2019-09-19 08:00] VITALS: BP 122/61
[2019-09-19] MEDS: FUROSEMIDE 40MG TABLET PO SCH (09:08)
[2019-09-19] MEDS: PREDNISONE 20MG TABLET PO SCH (09:08)
[2019-09-19] MEDS: ENOXAPARIN 40MG/0.4ML SYR SUBCUT SCH (09:09)
[2019-09-19] MEDS: AMLODIPINE 10MG TABLET PO SCH (09:09)
[2019-09-19 12:00] VITALS: BP 111/61
[2019-09-19 14:39] LABS: BASOPHILS % 0.3 % (0.0-2.0); EOSINOPHILS % 0.6 % (0.0-5.0); HEMATOCRIT. 35.9 % (42.0-52.0); HEMOGLOBIN. 12.3 g/dL (14.0-18.0); LYMPHOCYTES % 15.6 % (20.0-50.0); MEAN CORPUSCULAR HEMOGLOBIN 29.9 pg (28.0-32.0); MEAN CORPUSCULAR VOLUME 87.4 fL (80.0-94.0); MEAN PLATELET VOLUME 7.8 fl (7.4-10.4); MONOCYTES % 4.2 % (2.0-8.0); NEUTROPHILS % 79.3 % (40.0-76.0); PLATELET 148 x1000/uL (130-400); RED BLOOD CELL COUNT 4.11 mill/uL (4.7-6.1); RED CELL DISTRIBUTION WIDTH 12.9 % (11.6-14.6)
[2019-09-19 14:50] LABS: CHLORIDE 93 mEq/L (98-107)
[2019-09-19 16:00] VITALS: BP 113/57
[2019-09-19] MEDS: BICALUTAMIDE 50 MG TABLET PO SCH (17:58)
[2019-09-19 20:00] VITALS: BP 117/56
[2019-09-20] VITALS: BP 122/65
[2019-09-20] MEDS: IPRATROPIUM/ALBUTEROL 0.5-3(2.5)MG/3ML NEB NEB SCH ×3 (00:48→07:37)
[2019-09-20 04:00] VITALS: BP 126/66
[2019-09-20] MEDS: ACETAMINOPHEN 325MG TABLET PO PRN (05:11)
[2019-09-20 08:00] VITALS: BP 115/57
[2019-09-20] MEDS: PREDNISONE 20MG TABLET PO SCH (09:46)
[2019-09-20] MEDS: AMLODIPINE 10MG TABLET PO SCH (09:46)
[2019-09-20] MEDS: FUROSEMIDE 40MG TABLET PO SCH (09:46)
[2019-09-20] MEDS: ENOXAPARIN 40MG/0.4ML SYR SUBCUT SCH (09:47)
[2019-09-20] MEDS: IPRATROPIUM/ALBUTEROL 0.5-3(2.5)MG/3ML NEB NEB PRN (10:58)
[2019-09-20 12:00] VITALS: BP 113/52
[2019-09-20] MEDS: IPRATROPIUM/ALBUTEROL 0.5-3(2.5)MG/3ML NEB HHN SCH ×2 (13:35→20:47)
[2019-09-20 16:00] VITALS: BP 119/56
[2019-09-20] MEDS: BICALUTAMIDE 50 MG TABLET PO SCH (17:57)
[2019-09-20 20:00] VITALS: BP 118/66
[2019-09-21] VITALS (7 sets, daily range): BP systolic 92–122; BP diastolic 48–66
[2019-09-21] MEDS: IPRATROPIUM/ALBUTEROL 0.5-3(2.5)MG/3ML NEB HHN SCH ×4 (01:50→20:13)
[2019-09-21] MEDS: AMLODIPINE 10MG TABLET PO SCH (10:35)
[2019-09-21] MEDS: FUROSEMIDE 40MG TABLET PO SCH (10:36)
[2019-09-21] MEDS: PREDNISONE 20MG TABLET PO SCH (10:36)
[2019-09-21] MEDS: ENOXAPARIN 40MG/0.4ML SYR SUBCUT SCH (10:37)
[2019-09-21] MEDS: ACETAMINOPHEN 325MG TABLET PO PRN (11:30)
[2019-09-21] MEDS: BUDESONIDE 0.5MG/2ML NEB HHN SCH ×2 (12:34→20:14)
[2019-09-21] MEDS: BICALUTAMIDE 50 MG TABLET PO SCH (19:15)
[2019-09-22] VITALS (7 sets, daily range): BP systolic 116–157; BP diastolic 61–79
[2019-09-22] MEDS: IPRATROPIUM/ALBUTEROL 0.5-3(2.5)MG/3ML NEB HHN SCH ×4 (00:48→20:37)
[2019-09-22] MEDS: ACETAMINOPHEN 325MG TABLET PO PRN ×4 (06:02→23:59)
[2019-09-22] MEDS: BUDESONIDE 0.5MG/2ML NEB HHN SCH ×2 (09:15→20:37)
[2019-09-22] MEDS: PREDNISONE 10MG TABLET PO SCH (11:12)
[2019-09-22] MEDS: FUROSEMIDE 40MG TABLET PO SCH (11:13)
[2019-09-22] MEDS: AMLODIPINE 10MG TABLET PO SCH (11:13)
[2019-09-22] MEDS: ENOXAPARIN 40MG/0.4ML SYR SUBCUT SCH (11:14)
[2019-09-22] MEDS: BICALUTAMIDE 50 MG TABLET PO SCH (17:45)
[2019-09-23] VITALS: BP 124/59
[2019-09-23] MEDS: IPRATROPIUM/ALBUTEROL 0.5-3(2.5)MG/3ML NEB HHN SCH ×3 (02:24→13:27)
[2019-09-23 04:00] VITALS: BP 117/84
[2019-09-23] MEDS: AMLODIPINE 10MG TABLET PO SCH (09:35)
[2019-09-23] MEDS: PREDNISONE 10MG TABLET PO SCH (09:35)
[2019-09-23] MEDS: ENOXAPARIN 40MG/0.4ML SYR SUBCUT SCH (09:35)
[2019-09-23] MEDS: FUROSEMIDE 40MG TABLET PO SCH (09:36)
[2019-09-23] MEDS: BUDESONIDE 0.5MG/2ML NEB HHN SCH (09:38)
[2019-09-23 12:00] VITALS: BP 122/59
[2019-09-23 12:51] VITALS: BP 122/59
== END 2019-09-23 14:30 | DRG 193 ==
LOC: ER 20:25 → 3WST 23:03 → EDBEDREQ 23:11 → EDBEDREQTM 23:11 → ENRESERV 23:38 → 5WST 09-08 11:21
PROVIDERS: ADMIT Hospitalist; ATTEND Hospitalist
PROC: 5A09357 Assistance with Respiratory Ventilation, Less than 24 Consecutive Hours, Continuous Positive Airway Pressure (ICD-10-PCS; principal; 2019-09-02)
PROC: 5A09357 Assistance with Respiratory Ventilation, Less than 24 Consecutive Hours, Continuous Positive Airway Pressure (ICD-10-PCS; 2019-09-03)
DX: J18.9 Pneumonia, unspecified organism (principal); J96.02 Acute respiratory failure with hypercapnia; J44.0 Chronic obstructive pulmonary disease with (acute) lower respiratory infection; J44.1 Chronic obstructive pulmonary disease with (acute) exacerbation; E87.2 Acidosis; F03.90 Unspecified dementia, unspecified severity, without behavioral disturbance, psychotic disturbance, mood disturbance, and anxiety; I50.9 Heart failure, unspecified; I11.0 Hypertensive heart disease with heart failure; C61 Malignant neoplasm of prostate; R33.9 Retention of urine, unspecified; R22.2 Localized swelling, mass and lump, trunk; M19.90 Unspecified osteoarthritis, unspecified site; Z66 Do not resuscitate; Z85.46 Personal history of malignant neoplasm of prostate; Z87.891 Personal history of nicotine dependence
CPT/HCPCS: 36415; 36600; 71045; 71250; 80048; 80053; 82375; 82805; 83735; 83880; 84153; 84403; 84484; 85025; 92610; 93005; 93306; 93970; 94640; 94644; 94660; 96365; 99291; J0456; J0696; J1650; J1940; J2270; J2543; J2930; J7060; J7512; J7608; J7626; G0103